=== PATIENT | female | born 1940 | race African-American/Black ===

== ENCOUNTER 2024-03-14 11:53 | Emergency (ER) | payer MEDICARE, OTHER, SELFPAY ==
[2024-03-14] VITALS (10 sets, daily range): BP systolic 126–150; BP diastolic 72–90; PULSE 66–90; RESP 18–20; TEMP 36.6–36.8; O2SAT 97–100
--- NOTE | ~2024-03-14 | CT_ITS ---
EXAMINATION: CT brain wo con DATE: 03/14/2024 12:43 INDICATION: Severe headache. Lightheadedness. TECHNIQUE: Computed tomography (CT) of the head was performed without intravenous contrast. The mA wa s adjusted according to patient size. Iterative reconstruction technique was employed. The dose-lengt h product was 605.33 mGy-cm. COMPARISON: None FINDINGS: There is no intracranial hemorrhage, acute infarction, or abnormal intracranial mass lesion . The ventricles are normal in size. There are likely changes of ocular lens replacement surgeries. T here is mild mucosal thickening in sphenoid sinus. The mastoid air cells are normal. IMPRESSION: 1. Normal brain. Reviewed, dictated and finalized at location A. IMPRESSION: 1. Normal brain.
--- NOTE | 2024-03-14 12:04 | ECG_ITS ---
Test Date: 2024-03-14 12:12:56 Measurements Intervals [place] Rate: 76 P: 63 NC: 208 QRS: 2 QRSD: 124 T: 27 QT: 399 QTc: 451 Interpretive Statements SINUS RHYTHM POSSIBLE LEFT ATRIAL ENLARGEMENT [-0.1mV P-WAVE IN V1/V2] No previous ECG available for comparison Electronically Signed On 03-14-2024 17:13:24 CDT by Dolores Goyal M.D.
[2024-03-14 12:19] LABS: Basophils Percent Auto 0.5 % (0.2-1.2); Eosinophils Absolute Auto 0.1 K/mm3 (0-0.3); Eosinophils Percent Auto 1.7 % (0-4.4); Hematocrit 38.8 % (37.0-47.0); Hemoglobin 12.7 g/dL (12.0-15.0); Immature Granulocyte Absolute 0.09 K/mm3 (0.00-0.031); Immature Granulocyte Percent A 1.2 % (0-0.5); Lymphocytes Percent Auto 44.9 % (18.3-44.2); Mean Corpuscular HGB Conc 32.7 g/dl (32-36); Mean Corpuscular Hemoglobin 30.1 pg (26-34); Mean Corpuscular Volume 91.9 fl (80-100); Mean Platelet Volume 9.3 fl (7.4-10.4); Monocytes Absolute Auto 0.6 K/mm3 (0.1-0.6); Monocytes Percent Auto 8.1 % (2.6-8.5); Neutrophils Absolute Auto 3.4 K/mm3 (1.3-6.7); Neutrophils Percent Auto 43.6 % (45.5-73.1); Platelet Count Result 182 k/mm3 (150-375); Red Blood Count 4.22 M/mm3 (4.2-5.4); Red Cell Distribution Width 13.6 % (11.5-14.5); White Blood Count 7.8 K/mm3 (4.5-10.0)
[2024-03-14] MEDS: ONDANSETRON INJ 4 MG/2 ML VIAL IV PUSH (12:31)
--- NOTE | 2024-03-14 12:31 | ED.WEAKNESS ---
HPI - Weakness General Chief complaint: Weakness Stated complaint: weakness Time Seen by Provider: 03/14/24 12:00 History of Present Illness HPI Narrative: 83-year-old female with a history of hypertension hyperlipidemia presenting with generalized weakness. Patient states that she felt totally normal this morning. She when out to her yd to do some gardening and she started to feel lightheaded. [place] like she was about to faint. Sat down on the ground and she continued to feel lightheaded and was unable to stand up due to generalized weakness so EMS was called. Per EMS she had blood pressure is 90/50. Currently, she continues to complain of some lightheadedness. States that she developed severe headache around the same time. No numbness or weakness. No vision or speech changes. No chest or abdominal pain. States that she feels a bit nauseated but no throwing up. No palpitations or shortness of breath. No further complaints. Related Data Allergies Allergy/AdvReac Type Severity Reaction Status Date / Time No Known Allergies Allergy Mild Unverified 12/12/18 09:05 Review of Systems Review of Systems: All systems reviewed & are unremarkable except as noted in HPI and below [facility] Family History Family History Sibling Family history of kidney disease Other Diabetes mellitus Social History Social History Smoking status: Never smoker Alcohol intake: never Exam Narrative: GENERAL: Nontoxic, no acute distress, pleasant cooperative HEAD: Normocephalic, atraumatic. EYES: PERRLA and EOMI. ENT: Grossly unremarkable NECK: Supple. CHEST: Clear to auscultation. No respiratory distress. HEART: Regular rate and rhythm ABDOMEN: Soft, nontender, nondistended EXTREMITIES: Normal range of motion. No edema. SKIN: Warm, dry, no rash. NEURO: No focal deficits. Alert and oriented x3. PSYCH: Normal mood and affect. Course Vital Signs Vital signs: Vital Signs Temperature 97.9 F 03/14/24 11:58 Pulse Rate 88 03/14/24 11:58 Respiratory Rate 20 03/14/24 11:58 Blood Pressure 131/89 03/14/24 11:58 Pulse Oximetry 98 03/14/24 11:58 Temperature 97.9 F 03/14/24 11:58 Pulse Rate 84 03/14/24 18:05 Respiratory Rate 18 03/14/24 18:05 Blood Pressure 129/81 03/14/24 18:05 Pulse Oximetry 98 03/14/24 18:05 Oxygen Delivery Room Air 03/14/24 12:00 MDM - Weakness MDM Narrative Medical decision making narrative: 83-year-old female presenting with lightheadedness and generalized weakness. On arrival, her vitals are within normal limits. For EMS she did have some soft pressure is 90s over 50s. EKG per my interpretation shows normal sinus rhythm with first-degree AV block, no ST elevations or depressions. Blood work with slightly low potassium of 3.1. This has been repleted orally. CT brain without acute abnormalities. Patient received fluids, potassium, a dose of Keflex and states that she feels much better. Orthostatics are normal. States that she has been working outside in the heat a lot. Advised that she try to drink fluids more and will start her on Keflex for UTI. Recommend close PCP follow-up. Appropriate return precautions given. Discharged in stable condition Differential Diagnosis Differential diagnosis: Likely anemia, dehydration and other (Lightheadedness, weakness, [place]CR[place], UTI) Medical Records Attestation: I reviewed the patient's medical records. Lab Data Attestation: I reviewed the patient's lab results. 03/14/24 12:13 03/14/24 12:13 Labs: Lab Results 03/14/24 03/14/24 03/14/24 Range/Units 12:13 12:13 14:06 WBC 7.8 (4.5-10.0) K/mm3 RBC 4.22 (4.2-5.4) M/mm3 Hgb 12.7 (12.0-15.0) g/dL Hct 38.8 (37.0-47.0) % MCV 91.9 (80-100) fl MCH 30.1 (26-34) pg MCHC 32.7 (32-36) g/dl RDW 13.6 (
[2024-03-14 12:45] LABS: Lipase 64 U/L (23-300); Magnesium 1.7 mg/dL (1.6-2.3)
[2024-03-14 12:50] LABS: INR 1.1
[2024-03-14 12:51] LABS: Partial Thromboplastin Time 24.3 Seconds (22.3-36.8)
[2024-03-14 12:57] LABS: Troponin I < 0.012 ng/mL (0.000-0.034)
[2024-03-14] MEDS: ACETAMINOPHEN 500 MG TABLET 1000 MG PO (13:06)
[2024-03-14] MEDS: SODIUM CHLORIDE 0.9% IV 1,000 ML 999 ML IV CONT (13:07)
[2024-03-14 14:28] LABS: Add Urine Microscopic? YES; Appearance Urine Clear (Clear); Bacteria Urine None Seen /hpf; Bilirubin Urine Negative (Negative); Blood Urine Negative (Negative); Color Urine Yellow (Yellow); Glucose Urine UA Trace mg/dL (Negative); Ketones Urine Trace mg/dL (Negative); Leukocyte Esterase Ur 1+ LEU/UL (Negative); Nitrate Urine Negative (Negative); Non Pathogenic Casts 0-2; Protein Urine Negative (Negative); RBC Urine 0-2 /hpf (0-2); Specific Grav Ur 1.022 (1.001-1.035); Squamous Epithelial Cell Urine Occasional /hpf (Few); pH Urine 5.5 (5.0-9.0)
[2024-03-14 14:43] LABS: Alanine Aminotransferase 21 U/L (6-35); Albumin Level 4.2 g/dL (3.5-5.1); Alkaline Phosphatase 102 U/L (38-126); Anion Gap 10 mmol/L (4-12); Aspartate Amino Transferase 37 U/L (14-36); Bilirubin,Total 0.8 mg/dL (0.2-1.3); Blood Urea Nitrogen 23 mg/dL (7-17); Calcium 9.1 mg/dL (8.4-10.2); Carbon Dioxide 24 mmol/L (22-30); Chloride 105 mmol/L (98-107); Estimated CRCL calculation 43 ml/min; Estimated Glomerular Filt Rate > 60; Glucose 177 mg/dL (65-110); Potassium 3.1 mmol/L (3.4-5.0); Sodium 139 mmol/L (137-145)
--- NOTE | 2024-03-14 15:29 | ECG_ITS ---
Test Date: 2024-03-14 15:19:13 Measurements Intervals [place] Rate: 72 P: 61 PA: 237 QRS: -1 QRSD: 94 T: 10 QT: 408 QTc: 447 Interpretive Statements SINUS RHYTHM WITH FIRST DEGREE AV BLOCK POSSIBLE LEFT ATRIAL ENLARGEMENT [-0.1mV P WAVE IN V1/V2] Compared to ECG 03/14/2024 12:12:56 NO SIGNIFICANT CHANGES Electronically Signed On 03-14-2024 17:15:58 CDT by Dolores Goyal M.D.
[2024-03-14] MEDS: POTASSIUM CHLORIDE 20 MEQ ER TABLET 40 MEQ PO (15:37)
[2024-03-14 15:46] LABS: Troponin I < 0.012 ng/mL (0.000-0.034)
[2024-03-14] MEDS: CEPHALEXIN 500 MG CAPSULE PO (18:01)
== END 2024-03-14 18:22 | disposition home or self-care (01) ==
PROVIDERS: Emergency Provider Emergency Medicine
DX: N39.0 Urinary tract infection, site not specified (principal); E86.0 Dehydration; E87.6 Hypokalemia; E78.5 Hyperlipidemia, unspecified; I10 Essential (primary) hypertension; R94.31 Abnormal electrocardiogram [ECG] [EKG]; I44.0 Atrioventricular block, first degree
CPT/HCPCS: 36415; 70450; 80053; 81001; 83690; 83735; 84484; 85025; 85610; 85730; 87086; 93005; 96361; 96374; 99284; A9270; J2405; J7030

== ENCOUNTER 2024-04-02 00:31 | Emergency (ER) | payer MEDICARE, OTHER, SELFPAY ==
[2024-04-02 00:37] VITALS: BP 146/75; PULSE 96; RESP 15; TEMP 36.6; O2SAT 99
--- NOTE | 2024-04-02 03:53 | ECG_ITS ---
Test Date: 2024-04-02 05:47:29 Measurements Intervals [place] Rate: 73 P: 68 NC: 226 QRS: 10 QRSD: 82 T: 43 QT: 387 QTc: 429 Interpretive Statements SINUS RHYTHM WITH FIRST DEGREE AV BLOCK POSSIBLE LEFT ATRIAL ENLARGEMENT [-0.1mV P WAVE IN V1/V2] LOW QRS VOLTAGE IN PRECORDIAL LEADS [QRS DEFLECTION < 1.0 mV IN CHEST LEADS] ABNORMAL ECG Compared to ECG 03/14/2024 15:19:13 NO SIGNIFICANT CHANGE Electronically Signed On 04-03-2024 07:16:46 CDT by Sunny Campo M.D.
--- NOTE | 2024-04-02 06:32 | ED.DIZZY ---
HPI - Dizziness General Chief Complaint: Dizziness Stated Complaint: dizzy Time Seen by Provider: 04/02/24 05:44 History of Present Illness HPI Narrative: Patient is an 83-year-old female who presents to the emergency department this evening complaining of A headache and dizziness. When asked to describe the dizziness, patient states that it is a lightheaded near syncopal sensation rather than a room spinning sensation. Patient states that she was seen at our facility 1-2 weeks ago for similar symptoms at that time she was informed that she was dehydrated. CT brain was performed at that time revealing no acute process. Patient states that her symptoms have persisted since she has been seen here and has not worsened. Denies any worsening headache or dizziness/ lightheadedness episode. Patient states that she was told she needs to drink more water to stay hydrated and states that she has been to do so but believes that she has not been able to drink enough fluids to keep up with her needs. Denies any chest pain or shortness of breath and denies any abdominal pain. No additional symptoms or concerns at this time. Related Data Allergies Allergy/AdvReac Type Severity Reaction Status Date / Time No Known Allergies Allergy Mild Verified 04/02/24 00:37 Review of Systems Review of Systems: All systems are reviewed and are negative unless stated otherwise in the HPI. [facility] Family History Family History Sibling Family history of kidney disease Other Diabetes mellitus Social History Social History Smoking status: Never smoker Alcohol intake: never Exam Narrative: General: Alert, awake, afebrile, in no acute distress. HEENT: PERRL, no rhinorrhea, no post nasal drip, oropharynx clear. Cardiovascular: Regular rate and rhythm, no murmurs, rubs or gallops, no peripheral edema. Respiratory: Clear to auscultation bilaterally, no tachypnea, no wheezing, no rhonchi, no rubs, no respiratory distress. Abdomen: Soft, nontender, nondistended, no rebound, no guarding, no peritoneal signs. Musculoskeletal: No joint swelling or deformity, normal muscle tone. Skin: No rashes or petechia, no signs of infection. Neurological: Alert and oriented to person, place, and time. Follows all commands. No focal deficits, speech is clear and fluent. Course Vital Signs Vital signs: Vital Signs Temperature 98 F 04/02/24 00:37 Pulse Rate 96 04/02/24 00:37 Respiratory Rate 15 04/02/24 00:37 Blood Pressure 146/75 H 04/02/24 00:37 Pulse Oximetry 99 04/02/24 00:37 Oxygen Delivery Room Air 04/02/24 00:37 Temperature 98 F 04/02/24 00:37 Pulse Rate 72 04/02/24 06:34 Respiratory Rate 14 04/02/24 06:34 Blood Pressure 146/79 H 04/02/24 06:34 Pulse Oximetry 98 04/02/24 06:34 Oxygen Delivery Room Air 04/02/24 00:37 MDM - Dizziness MDM Narrative Medical decision making narrative: The patient was evaluated by myself in the emergency department. History is obtained from patient who is an independent historian and physical exam was performed. External medical records were reviewed at this time. IV was established and pertinent tests were ordered. EKG was obtained which revealed sinus rhythm at a rate of 73 beats per minute, no evidence of acute ischemia. EKG was independently interpreted by me and is currently pending official cardiology read. Patient was signed out to Dr. Whitley pending remainder of workup. Lab Data 04/02/24 06:30 04/02/24 06:30 Labs: Lab Results 04/02/24 Range/Units 06:30 WBC 5.9 (4.5-10.0) K/mm3 RBC 4.61 (4.2-5.4) M/mm3 Hgb 13.8 (12.0-15.0) g/dL Hct 41.9 (37.0-47.0) % MCV 90.9 (80-100) fl MCH 29.9 (26-34) pg MCHC 32.9 (32-36) g/dl RDW 13.5 (11.5-14.5) % Plt Count 203 (150-375) k/mm3 MPV 9.2
[2024-04-02 06:34] VITALS: BP 146/79; PULSE 72; RESP 14; O2SAT 98
[2024-04-02 06:44] LABS: Basophils Percent Auto 0.5 % (0.2-1.2); Eosinophils Absolute Auto 0.1 K/mm3 (0-0.3); Hematocrit 41.9 % (37.0-47.0); Hemoglobin 13.8 g/dL (12.0-15.0); Immature Granulocyte Absolute 0.02 K/mm3 (0.00-0.031); Immature Granulocyte Percent A 0.3 % (0-0.5); Lymphocytes Percent Auto 46.2 % (18.3-44.2); Mean Corpuscular HGB Conc 32.9 g/dl (32-36); Mean Corpuscular Hemoglobin 29.9 pg (26-34); Mean Corpuscular Volume 90.9 fl (80-100); Mean Platelet Volume 9.2 fl (7.4-10.4); Monocytes Absolute Auto 0.6 K/mm3 (0.1-0.6); Monocytes Percent Auto 9.4 % (2.6-8.5); Neutrophils Absolute Auto 2.5 K/mm3 (1.3-6.7); Neutrophils Percent Auto 42.6 % (45.5-73.1); Platelet Count Result 203 k/mm3 (150-375); Red Blood Count 4.61 M/mm3 (4.2-5.4); Red Cell Distribution Width 13.5 % (11.5-14.5); White Blood Count 5.9 K/mm3 (4.5-10.0)
[2024-04-02 06:58] LABS: Alanine Aminotransferase 18 U/L (6-35); Albumin Level 4.3 g/dL (3.5-5.1); Alkaline Phosphatase 98 U/L (38-126); Anion Gap 10 mmol/L (4-12); Aspartate Amino Transferase 26 U/L (14-36); Bilirubin,Total 0.8 mg/dL (0.2-1.3); Blood Urea Nitrogen 18 mg/dL (7-17); Calcium 9.6 mg/dL (8.4-10.2); Carbon Dioxide 32 mmol/L (22-30); Chloride 96 mmol/L (98-107); Estimated CRCL calculation 43 ml/min; Estimated Glomerular Filt Rate > 60; Glucose 153 mg/dL (65-110); Magnesium 1.8 mg/dL (1.6-2.3); Potassium 3.3 mmol/L (3.4-5.0); Sodium 138 mmol/L (137-145)
[2024-04-02 07:08] LABS: Troponin I < 0.012 ng/mL (0.000-0.034)
[2024-04-02 07:19] VITALS: BP 125/79; PULSE 85; RESP 18; O2SAT 99
[2024-04-02] MEDS: POTASSIUM CHLORIDE 20 MEQ PACKET (FOR LIQUID) 40 MEQ PO (07:25)
[2024-04-02] MEDS: LACTATED RINGERS 1,000 ML 999 ML IV CONT (07:26)
[2024-04-02 09:46] VITALS: BP 118/73; PULSE 74; RESP 17; O2SAT 100
[2024-04-02 10:21] LABS: Add Urine Microscopic? YES; Appearance Urine Clear (Clear); Bacteria Urine None Seen /hpf; Bilirubin Urine Negative (Negative); Blood Urine Negative (Negative); Color Urine Yellow (Yellow); Glucose Urine UA Negative (Negative); Ketones Urine Negative (Negative); Leukocyte Esterase Ur 1+ LEU/UL (Negative); Need Manual Microscopic Reviewed; Nitrate Urine Negative (Negative); Non Pathogenic Casts 0-2; Protein Urine Negative (Negative); RBC Urine 0-2 /hpf (0-2); Specific Grav Ur 1.008 (1.001-1.035); Squamous Epithelial Cell Urine None Seen /hpf (Few); WBC Urine 0-5 /hpf (0-3); pH Urine 7.5 (5.0-9.0)
[2024-04-02 11:21] VITALS: BP 119/70; PULSE 67; RESP 18; O2SAT 100
== END 2024-04-02 11:23 | disposition home or self-care (01) ==
PROVIDERS: Emergency Medicine; Emergency Provider Student in an Organized Health Care Education/Training Program
DX: R42 Dizziness and giddiness (principal)
CPT/HCPCS: 36415; 80053; 81001; 83735; 84484; 85025; 93005; 96360; 99284; A9270; J7120

== ENCOUNTER 2024-06-18 13:17 | Emergency (ER) | payer MEDICARE, OTHER, SELFPAY ==
--- NOTE | ~2024-06-18 | CT_ITS ---
EXAMINATION: CTA brain carotid DATE: 06/18/2024 14:01 INDICATION: Dizziness. TECHNIQUE: Computed tomographic angiography (CTA) of the head was performed without and with 100 mL O [id number] intravenous contrast. CTA of the neck was performed with intravenous contrast. Automated exposure control and iterative reconstruction technique were employed. The dose-length product was 1 774.79 mGy-cm. Maximum intensity projection and volume rendered 3D-reconstructions were created by panchito hurtado technologist on a separate workstation. COMPARISON: Head CT 03/14/2024 FINDINGS: HEAD CTA: There is no intracranial hemorrhage, acute infarction, or abnormal intracranial mass lesion . The ventricles are normal in size. There are likely changes of ocular lens replacement surgeries. T here is mild mucosal thickening in the paranasal sinuses. The mastoid air cells are normal. Left vert ebral artery is dominant. There is no significant stenosis of basilar artery or the posterior cerebra l arteries. There is no significant stenosis of the intracranial internal carotid arteries or anterio r or middle cerebral arteries. Anterior communicating artery is normal. There is no aneurysm. NECK CTA: There is a 3.2 cm nodule in right thyroid lobe. There are no pathologically enlarged lymph nodes. There is no significant stenosis of the vertebral arteries. There is minimal plaque in the pro ximal internal carotid. There is 0% stenosis of the proximal right internal carotid artery relative to normal distal artery lumen diameter (NASCET criteria). There is 0% stenosis of the proximal left i nternal carotid artery relative to normal distal artery lumen diameter. There is severe cervical spon dylosis. IMPRESSION: 1. Normal brain. No aneurysm or significant intracranial arterial stenosis. 2. 0% stenosis of the proximal internal carotid arteries relative to normal distal artery lumen diame ters (NASCET criteria). 3. Right thyroid nodule. Consider ultrasound-guided fine needle aspiration. Reviewed, dictated and finalized at location A. ERCIAL AIRPLANE PILOT IMPRESSION: 1. Normal brain. No aneurysm or significant intracranial arterial stenosis. 2. 0% stenosis of the proximal internal carotid arteries relative to normal dis elvis artery lumen diameters (NASCET criteria). 3. Right thyroid nodule. Consider ultrasound-guided fine needle aspiration.
[2024-06-18 13:32] LABS: Glucose Point of Care 145 mg/dl (65-105)
[2024-06-18 13:40] VITALS: BP 149/80; PULSE 90; RESP 12; TEMP 36.6; O2SAT 100
[2024-06-18 13:52] VITALS: PULSE 67
[2024-06-18 13:52] LABS: Basophils Percent Auto 0.7 % (0.2-1.2); Eosinophils Absolute Auto 0.2 K/mm3 (0-0.3); Eosinophils Percent Auto 2.5 % (0-4.4); Hematocrit 40.6 % (37.0-47.0); Hemoglobin 13.4 g/dL (12.0-15.0); Immature Granulocyte Absolute 0.02 K/mm3 (0.00-0.031); Immature Granulocyte Percent A 0.3 % (0-0.5); Lymphocytes Absolute Auto 2.28 K/mm3 (0.9-3.2); Lymphocytes Percent Auto 38.3 % (18.3-44.2); Mean Corpuscular Hemoglobin 30.1 pg (26-34); Mean Corpuscular Volume 91.2 fl (80-100); Mean Platelet Volume 9.1 fl (7.4-10.4); Monocytes Absolute Auto 0.6 K/mm3 (0.1-0.6); Monocytes Percent Auto 10.1 % (2.6-8.5); Neutrophils Absolute Auto 2.9 K/mm3 (1.3-6.7); Neutrophils Percent Auto 48.1 % (45.5-73.1); Platelet Count Result 184 k/mm3 (150-375); Red Blood Count 4.45 M/mm3 (4.2-5.4); Red Cell Distribution Width 13.6 % (11.5-14.5)
[2024-06-18 14:02] LABS: Estimated CRCL calculation 45 ml/min; Estimated Glomerular Filt Rate > 60
[2024-06-18 14:11] LABS: Alanine Aminotransferase 20 U/L (6-35); Albumin Level 4.5 g/dL (3.5-5.1); Alkaline Phosphatase 94 U/L (38-126); Anion Gap 5 mmol/L (4-12); Aspartate Amino Transferase 30 U/L (14-36); Bilirubin,Total 0.7 mg/dL (0.2-1.3); Blood Urea Nitrogen 23 mg/dL (7-17); Calcium 9.9 mg/dL (8.4-10.2); Carbon Dioxide 29 mmol/L (22-30); Chloride 102 mmol/L (98-107); Estimated CRCL calculation 45 ml/min; Estimated Glomerular Filt Rate > 60; Glucose 137 mg/dL (65-110); Potassium 3.7 mmol/L (3.4-5.0); Prothrombin Time 13.7 Seconds (11.1-14.7); Sodium 136 mmol/L (137-145)
[2024-06-18 14:16] LABS: Partial Thromboplastin Time 28.3 Seconds (22.3-36.8)
--- NOTE | 2024-06-18 14:37 | ED.GENADULT ---
HPI - General Adult General Chief complaint: Dizziness Stated complaint: dizzy Time Seen by Provider: 06/18/24 13:28 History of Present Illness HPI narrative: 83-year-old female present to the ED for evaluation for onset of dizziness and a movement sensation. Patient states that she was fine this morning when she woke up and did do her morning routines with no issues. Patient states while she was standing in line at the clothing store she had onset dizziness and describes also has a movement sensation. Patient did feel she needed to sit down or she was going to fall over. Patient does not feel like she was going to pass out. Patient denies any associated chest pain or shortness of breath with this. Patient denies any focal numbness or weakness. Upon arrival emergency department patient states her symptoms have resolved. Patient denies any current dizziness sensation. Patient does have a prior diagnosis of vertigo and states this did feel similar to the previous vertigo. Related Data Allergies Allergy/AdvReac Type Severity Reaction Status Date / Time No Known Allergies Allergy Mild Verified 04/02/24 00:37 Review of Systems Review of Systems: All systems reviewed & are unremarkable except as noted in HPI and below [facility] Family History Family History Sibling Family history of kidney disease Other Diabetes mellitus Social History Social History Smoking status: Never smoker Alcohol intake: never Exam Narrative: APPEARANCE: Well appearing, no pain, no distress, well-nourished. HEAD: normocephalic, atraumatic. EYES: PERRLA/EOMI, conjunctivae clear. NOSE: Normal no drainage EARS:TMS clear with good light reflex. THROAT: Pharynx clear, no exudate. NECK: Supple. No adenopathy, no masses. RESPIRATORY: Airway patent, respirations nonlabored. Clear to auscultation bilaterally, no rales, rhonchi, wheezing. CARDIOVASCULAR: Regular rate and rhythm without murmurs rubs or gallops. ABDOMINAL: Soft, nontender, nondistended, normal bowel sounds MUSCULOSKELETAL: Moves all extremities. Strength/ROM intact, No edema, No calf tenderness. NEURO: Alert. Cranial nerves II through XII intact. No focal neuro deficit SKIN: Warm, dry. Normal Color. Course Vital Signs Vital signs: Vital Signs Temperature 97.8 F 06/18/24 13:40 Pulse Rate 90 06/18/24 13:40 Respiratory Rate 12 06/18/24 13:40 Blood Pressure 149/80 H 06/18/24 13:40 Pulse Oximetry 100 06/18/24 13:40 Oxygen Delivery Room Air 06/18/24 13:40 Temperature 97.8 F 06/18/24 13:40 Pulse Rate 83 06/18/24 14:52 Respiratory Rate 23 H 06/18/24 14:52 Blood Pressure 132/92 H 06/18/24 14:52 Pulse Oximetry 99 06/18/24 14:52 Oxygen Delivery Room Air 06/18/24 13:40 Medical Decision Making MDM Narrative Medical decision making narrative: 83-year-old female presents emergency department for evaluation for 10 minutes vertigo like symptoms that have since resolved. Patient was able to ambulate in the emergency department without issue. Patient was afebrile without a leukocytosis and a stable hemoglobin. Patient has no acute abnormalities on her CMP and UA was negative for infection. Patient was also negative for influenza RSV and for COVID. INR is 1.0. CTA showed no acute abnormality. Patient will be discharged home with meclizine. Patient and family comfortable the plan for discharge and close follow-up Differential Diagnosis Differential Diagnosis: TIA, CVA, vertigo, dehydration, orthostatic hypotension Vital Signs Vital Signs: Vital Signs Temperature 97.8 F 06/18/24 13:40 Pulse Rate 90 06/18/24 13:40 Respiratory Rate 12 06/18/24 13:40 Blood Pressure 149/80 H 06/18/24 13:40 Pulse Oximetry 100 06/18/24 13:40 Oxygen Delivery Room Air 06/18/24 13:40 Temperature 97.8 F 06/18/24 13:40 Pulse Rate 83 06/18/24 14:52 Respiratory Rate 23 H 06/18/24 14:52 Blood Pressure 132/92 H 06/18/24 14:52 Pulse Oximetry 99 06/18/24 14:52 Oxygen Delivery Room Air 06/18/24 13:40 Lab Data Lab results reviewed: Yes I reviewed the patient's lab results. 06/18/24 13:46 06/18/24 13:53 Labs: Lab Results 06/18/24 06/18/24 06/18/24 Range/Units 13:29 13:46 13:53 WBC 6.0 (4.5-10.0) K/mm3 RBC 4.45 (4.2-5.4) M/mm3 Hgb 13.4 (12.0-15.0) g/dL Hct 40.6 (37.0-47.0) % MCV 91.2 (80-100) fl MCH 30.1 (26-34) pg MCHC 33.0 (32-36) g/dl RDW 13.6 (11.5-14.5) % Plt Count 184 (150-375) k/mm3 MPV 9.1 (7.4-10.4) fl Immature Gran % (Auto) 0.3 (0-0.5) % Neut % (Auto) 48.1 (45.5-73.1) % Lymph % (Auto) 38.3 (18.3-44.2) % [place] % (Auto) 10.1 H (2.6-8.5) % Eos % (Auto) 2.5 (0-4.4) % Baso % (Auto) 0.7 (0.2-1.2) % Lymph # (Auto) 2.28 (0.9-3.2) K/mm3 [place] # (Auto) 0.6 (0.1-0.6) K/mm3 Eos # (Auto) 0.2 (0-0.3) K/mm3 Baso # (Auto) 0.0 (0.0-0.1) K/mm3 Abs Immat Gran (auto) 0.02 (0.00-0.031) K/mm3 Absolute Neuts (auto) 2.9 (1.3-6.7) K/mm3 Absolute Nucleated RBC 0.000 (0.0-0.012) K/mm3 Nucleated RBC % 0.0 (0.0-0.2) % PT 13.7 (11.1-14.7) Seconds INR 1.0 APTT 28.3 (22.3-36.8) Seconds Sodium 136 L (137-145) mmol/L Potassium 3.7 (3.4-5.0) mmol/L Chloride 102 (98-107) mmol/L Carbon Dioxide 29 (22-30) mmol/L Anion Gap 5 (4-12) mmol/L BUN 23 H (7-17) mg/dL Creatinine 0.80 0.80 (0.7-1.0) mg/dL Estim Creat Clear Calc 45 45 ml/min Estimated GFR > 60 > 60 (59 - ) Glucose 137 H (65-110) mg/dL POC Capillary Glucose 145 H (65-105) mg/dl Calcium 9.9 (8.4-10.2) mg/dL Total Bilirubin 0.7 (0.2-1.3) mg/dL AST 30 (14-36) U/L ALT 20 (6-35) U/L Alkaline Phosphatase 94 (38-126) U/L Total Protein 8.0 (6.3-8.2) g/dL Albumin 4.5 (3.5-5.1) g/dL Urine Color (Yellow) Urine Appearance (Clear) Urine pH (5.0-9.0) Ur Specific [place] (1.001-1.035) Urine Protein (Negative) mg/dL Urine Glucose (UA) (Negative) mg/dL Urine Ketones (Negative) mg/dL Ur Blood (Man) (Negative) Urine Nitrate (Negative) Urine Bilirubin (Negative) Urine Urobilinogen (<2.0) mg/dL Add Ur Microanalysis Leukocyte Esterase Rfl (Negative) ÁNGEL/UL Urine RBC (0-2) /hpf Urine WBC (0-3) /hpf Ur Squamous Epith Cells (Few) /hpf Urine Bacteria /hpf Urine Casts Influenza A (RT-PCR) (Negative) Influenza B (RT-PCR) (Negative) RSV (RT-PCR) (Negative) SARS-CoV-2 RNA (RT-PCR) (Negative) 06/18/24 06/18/24 Range/Units 14:16 14:46 WBC (4.5-10.0) K/mm3 RBC (4.2-5.4) M/mm3 Hgb (12.0-15.0) g/dL Hct (37.0-47.0) % MCV (80-100) fl MCH (26-34) pg MCHC (32-36) g/dl RDW (11.5-14.5) % Plt Count (150-375) k/mm3 MPV (7.4-10.4) fl Immature Gran % (Auto) (0-0.5) % Neut % (Auto) (45.5-73.1) % Lymph % (Auto) (18.3-44.2) % [place] % (Auto) (2.6-8.5) % Eos % (Auto) (0-4.4) % Baso % (Auto) (0.2-1.2) % Lymph # (Auto) (0.9-3.2) K/mm3 [place] # (Auto) (0.1-0.6) K/mm3 Eos # (Auto) (0-0.3) K/mm3 Baso # (Auto) (0.0-0.1) K/mm3 Abs Immat Gran (auto) (0.00-0.031) K/mm3 Absolute Neuts (auto) (1.3-6.7) K/mm3 Absolute Nucleated RBC (0.0-0.012) K/mm3 Nucleated RBC % (0.0-0.2) % PT (11.1-14.7) Seconds INR APTT (22.3-36.8) Seconds Sodium (137-145) mmol/L Potassium (3.4-5.0) mmol/L Chloride (98-107) mmol/L Carbon Dioxide (22-30) mmol/L Anion Gap (4-12) mmol/L BUN (7-17) mg/dL Creatinine (0.7-1.0) mg/dL Estim Creat Clear Calc ml/min Estimated GFR (59 - ) Glucose (65-110) mg/dL POC Capillary Glucose (65-105) mg/dl Calcium (8.4-10.2) mg/dL Total Bilirubin (0.2-1.3) mg/dL AST (14-36) U/L ALT (6-35) U/L Alkaline Phosphatase (38-126) U/L Total Protein (6.3-8.2) g/dL Albumin (3.5-5.1) g/dL Urine Color Yellow (Yellow) Urine Appearance Clear (Clear) Urine pH 6.0 (5.0-9.0) Ur Specific [place] 1.029 (1.001-1.035) Urine Protein Negative (Negative) mg/dL Urine Glucose (UA) Negative (Negative) mg/dL Urine Ketones Negative (Negative) mg/dL Ur Blood (Man) Negative (Negative) Urine Nitrate Negative (Negative) Urine Bilirubin Negative (Negative) Urine Urobilinogen 1.0 (<2.0) mg/dL Add Ur Microanalysis Reviewed Leukocyte Esterase Rfl 1+ H (Negative) ÁNGEL/UL Urine RBC 0-2 (0-2) /hpf Urine WBC 0-5 (0-3) /hpf Ur Squamous Epith Cells None seen (Few) /hpf Urine Bacteria None seen /hpf Urine Casts 0-2 Influenza A (RT-PCR) Negative (Negative) Influenza B (RT-PCR) Negative (Negative) RSV (RT-PCR) Negative (Negative) SARS-CoV-2 RNA (RT-PCR) Negative (Negative) Imaging Data Radiologist's impression: Impressions Head/Neck CTA 06/18/24 14:02 IMPRESSION: 1. Normal brain. No aneurysm or significant intracranial arterial stenosis. 2. 0% stenosis of the proximal internal carotid arteries relative to normal distal artery lumen diameters (NASCET criteria). 3. Right thyroid nodule. Consider ultrasound-guided fine needle aspiration. Discharge Plan Discharge Clinical Impression: Benign paroxysmal positional vertigo Patient Disposition: Home, Self-Care Condition: Stable Instructions: Antibiotic Form, Benign Paroxysmal Positional Vertigo (ED) Additional Instructions: Meclizine as needed for vertigo control. Have close follow-up with your primary care physician. If you have any worsening symptoms then please call or return to the emergency department. Prescriptions: New meclizine 25 mg tablet 25 mg PO BID PRN (Reason: dizziness) Qty: 14 0RF No Action cephalexin 500 mg capsule 500 mg PO Q12H 7 Days Qty: 14 0RF Follow-up/Referrals: UNKNOWN,DOCTOR [Primary Care Provider] -
[2024-06-18 14:47] VITALS: BP 138/88; PULSE 86
[2024-06-18 14:49] VITALS: BP 138/88; BP 145/86; PULSE 78; PULSE 88; RESP 18; O2SAT 97
[2024-06-18 14:50] VITALS: BP 132/92; BP 145/86; PULSE 80; PULSE 94; RESP 15; O2SAT 100
[2024-06-18 14:52] VITALS: BP 132/92; PULSE 83; RESP 23; O2SAT 99
[2024-06-18 14:56] LABS: Influenza A QL RT-PCR Negative (Negative); Influenza B QL RT-PCR Negative (Negative); RSV RNA, RT-PCR Negative (Negative); SARS-CoV-2 RNA PCR Negative (Negative)
[2024-06-18] MEDS: MECLIZINE HCL 25 MG TABLET PO (14:56)
[2024-06-18 15:04] LABS: Add Urine Microscopic? YES; Appearance Urine Clear (Clear); Bacteria Urine None Seen /hpf; Bilirubin Urine Negative (Negative); Blood Urine Negative (Negative); Color Urine Yellow (Yellow); Glucose Urine UA Negative (Negative); Ketones Urine Negative (Negative); Leukocyte Esterase Ur 1+ LEU/UL (Negative); Need Manual Microscopic Reviewed; Nitrate Urine Negative (Negative); Non Pathogenic Casts 0-2; Protein Urine Negative (Negative); RBC Urine 0-2 /hpf (0-2); Specific Grav Ur 1.029 (1.001-1.035); Squamous Epithelial Cell Urine None Seen /hpf (Few); WBC Urine 0-5 /hpf (0-3)
== END 2024-06-18 16:21 | disposition home or self-care (01) ==
PROVIDERS: Emergency Provider Emergency Medicine
DX: H81.10 Benign paroxysmal vertigo, unspecified ear (principal); Z20.822 Contact with and (suspected) exposure to COVID-19; R82.998 Other abnormal findings in urine; E04.1 Nontoxic single thyroid nodule
CPT/HCPCS: 36415; 70496; 70498; 80053; 81001; 82948; 85025; 85610; 85730; 87086; 87637; 99284; A9270; Q9967